=== PATIENT | male | born 2000 | race Asian ===

== ENCOUNTER 2018-06-10 19:03 | Emergency (ER) | payer OTHER ==
[~2018-06-10] VITALS: Ht 180.3 cm; Wt 75.0 kg
[2018-06-10 19:23] VITALS: TEMP 100.6
[2018-06-10] MEDS ORDERED: CLEOCIN HC150 MG/CAP (19:27)
[2018-06-10 21:05] VITALS: BP 111/69; PULSE 105
== END 2018-06-10 21:05 | disposition home or self-care (01) ==
LOC: COL.ER 19:03
DX: J36 Peritonsillar abscess (principal)
CPT/HCPCS: J1885